=== PATIENT | female | born 1995 | race Caucasian/White ===

== ENCOUNTER 2024-01-10 12:49 | Outpatient (RCR) | payer OTHER, MEDICAID, SELFPAY ==
[2024-01-10 13:01] VITALS: BMI 37.6
== END 2024-03-26 11:10 | disposition home or self-care (01) ==
LOC: ANHDMC 12:49
PROVIDERS: PCP Obstetrics & Gynecology; Visit Provider Obstetrics & Gynecology
DX: O24.419 Gestational diabetes mellitus in pregnancy, unspecified control (principal); Z3A.00 Weeks of gestation of pregnancy not specified; Z71.3 Dietary counseling and surveillance; Z71.89 Other specified counseling
CPT/HCPCS: 97802; G0108

== ENCOUNTER 2024-02-29 11:28 | Outpatient (RCR) | payer OTHER, MEDICAID, SELFPAY ==
[2024-01-19 11:33] VITALS: BP 117/64; PULSE 107
[2024-01-25 11:55] VITALS: BP 120/62; PULSE 79
[2024-02-08 12:10] VITALS: BP 101/65; PULSE 92
[2024-02-15 16:02] VITALS: BP 133/68; PULSE 86
[2024-02-22 11:58] VITALS: BP 126/71; PULSE 76
[2024-02-29 12:01] VITALS: BP 117/82; PULSE 93
== END 2024-04-03 13:35 | disposition home or self-care (01) ==
LOC: ANHOBOP 11:28
PROVIDERS: PCP Family Medicine; Visit Provider Obstetrics & Gynecology
DX: O24.419 Gestational diabetes mellitus in pregnancy, unspecified control (principal); Z3A.32 32 weeks gestation of pregnancy; O16.3 Unspecified maternal hypertension, third trimester; Z3A.33 33 weeks gestation of pregnancy; Z3A.35 35 weeks gestation of pregnancy; Z3A.36 36 weeks gestation of pregnancy; Z3A.37 37 weeks gestation of pregnancy; Z3A.38 38 weeks gestation of pregnancy
CPT/HCPCS: 59025

== ENCOUNTER 2024-03-03 13:07 | Inpatient (IN) | payer OTHER, MEDICAID, SELFPAY ==
[2024-03-03] VITALS (44 sets, daily range): BP systolic 106–148; BP diastolic 49–100; PULSE 64–274; RESP 20; TEMP 36.4–37.6; O2SAT 94–100; BMI 37.9
[2024-03-03] MEDS: LACTATED RINGERS 1,000 ML 125 ML IV CONT (14:00)
[2024-03-03] MEDS: OXYTOCIN 30 UNITS/NS 500 ML 30 UNITS/500 ML BAG IV CONT (14:00)
[2024-03-03] MEDS: AMPICILLIN 2 GM/NS 100 ML 2 GM/100 ML BAG IVPB (14:00)
[2024-03-03] MEDS: NIFEdipine 30 MG TAB.ER.24 PO (14:05)
[2024-03-03 14:07] LABS: Basophils Percent Auto 0.1 % (0.2-1.2); Eosinophils Absolute Auto 0.1 K/mm3 (0-0.3); Eosinophils Percent Auto 0.7 % (0-4.4); Hematocrit 38.1 % (37.0-47.0); Hemoglobin 12.4 g/dL (12.0-15.0); Immature Granulocyte Absolute 0.03 K/mm3 (0.00-0.031); Immature Granulocyte Percent A 0.3 % (0-0.5); Lymphocytes Absolute Auto 1.55 K/mm3 (0.9-3.2); Lymphocytes Percent Auto 17.1 % (18.3-44.2); Mean Corpuscular HGB Conc 32.5 g/dl (32-36); Mean Corpuscular Hemoglobin 26.1 pg (26-34); Mean Platelet Volume 11.9 fl (7.4-10.4); Monocytes Absolute Auto 0.6 K/mm3 (0.1-0.6); Monocytes Percent Auto 6.2 % (2.6-8.5); Neutrophils Absolute Auto 6.8 K/mm3 (1.3-6.7); Neutrophils Percent Auto 75.6 % (45.5-73.1); Platelet Count Result 183 k/mm3 (150-375); Red Blood Count 4.76 M/mm3 (4.2-5.4); Red Cell Distribution Width 13.8 % (11.5-14.5); White Blood Count 9.1 K/mm3 (4.5-10.0)
--- NOTE | 2024-03-03 14:10 | LDADM ---
This patient, Karina Carrillo, was admitted to Labor/Delivery/Recovery 106 on 03/03/24 at 13:07. Plans for labor, pain management and were discussed with patient. Patient/family oriented to hospital policies and general routines including ID bracelet, bed and alarms, visiting hours, pain management, procedures, bathroom and other care routines, personal items, smoking policy, room service/diet and guest tray routines, infant security routines, and visiting hours. Patient/Family are encouraged to report perceived risks to care and to ask questions if they do not understand what they are told or what they should do. See OBIX for further documentation.
[2024-03-03 14:19] LABS: Alanine Aminotransferase 21 U/L (6-35); Albumin Level 3.8 g/dL (3.5-5.1); Alkaline Phosphatase 172 U/L (38-126); Anion Gap 10 mmol/L (4-12); Aspartate Amino Transferase 22 U/L (14-36); Bilirubin,Total 0.4 mg/dL (0.2-1.3); Blood Urea Nitrogen 8 mg/dL (7-17); Calcium 8.5 mg/dL (8.4-10.2); Carbon Dioxide 19 mmol/L (22-30); Chloride 105 mmol/L (98-107); Estimated CRCL calculation 121 ml/min; Estimated Glomerular Filt Rate > 60; Glucose 109 mg/dL (65-110); Potassium 3.8 mmol/L (3.4-5.0); Sodium 134 mmol/L (137-145); Uric Acid 4.5 mg/dL (2.5-7.5)
[2024-03-03 14:59] LABS: HIV 1/2 Ab P24 Ag Result Negative (Negative)
--- NOTE | 2024-03-03 15:48 | WPDANESEPP ---
Anes - Eval Pre Procedure Procedure: Labor epidural Date/Time: 03/03/24 15:48 Surgeon: Nasrin Preop Diagnosis: Pain during labor Pre Op Diagnosis: Spontaneous Labor Patient Data Age: 28 Gender: F Height: 1.55 m Weight: 91 kg Last Vital Signs Temp 37.6 C 03/03/24 15:00 Pulse 187 H 03/03/24 15:45 BP 126/77 03/03/24 15:45 O2 Del Method Room Air 03/03/24 14:09 Allergies Allergy/AdvReac Type Severity Reaction Status Date / Time No Known Allergies Allergy Verified 03/03/24 14:07 Home Medications Medication Instructions Recorded Confirmed Type aspirin 81 mg tablet,delayed 81 mg PO HS 01/25/24 03/03/24 History release cyanocobalamin (vitamin B-12) 3,000 mcg PO HS 01/25/24 03/03/24 History 1,000 mcg tablet (Vitamin B-12) nifedipine 30 mg tablet,extended 30 mg PO HS 01/25/24 03/03/24 History release 24 hr (Procardia XL) vit no.95-ferrous 1 tablet PO HS 01/25/24 03/03/24 History fumarate 28 mg-folic acid 800 mcg tablet () Laboratory Tests 03/03/24 03/03/24 14:01 14:01 WBC 9.1 K/mm3 (4.5-10.0) RBC 4.76 M/mm3 (4.2-5.4) Hgb 12.4 g/dL (12.0-15.0) Hct 38.1 % (37.0-47.0) MCV 80.0 fl (80-100) MCH 26.1 pg (26-34) MCHC 32.5 g/dl (32-36) RDW 13.8 % (11.5-14.5) Plt Count 183 k/mm3 (150-375) MPV 11.9 H fl (7.4-10.4) Immature Gran % (Auto) 0.3 % (0-0.5) Neut % (Auto) 75.6 H % (45.5-73.1) Lymph % (Auto) 17.1 L % (18.3-44.2) [place] % (Auto) 6.2 % (2.6-8.5) Eos % (Auto) 0.7 % (0-4.4) Baso % (Auto) 0.1 L % (0.2-1.2) Lymph # (Auto) 1.55 K/mm3 (0.9-3.2) [place] # (Auto) 0.6 K/mm3 (0.1-0.6) Eos # (Auto) 0.1 K/mm3 (0-0.3) Baso # (Auto) 0.0 K/mm3 (0.0-0.1) Abs Immat Gran (auto) 0.03 K/mm3 (0.00-0.031) Absolute Neuts (auto) 6.8 H K/mm3 (1.3-6.7) Absolute Nucleated RBC 0.000 K/mm3 (0.0-0.012) Nucleated RBC % 0.0 % (0.0-0.2) Sodium 134 L mmol/L (137-145) Potassium 3.8 mmol/L (3.4-5.0) Chloride 105 mmol/L (98-107) Carbon Dioxide 19 L mmol/L (22-30) Anion Gap 10 mmol/L (4-12) BUN 8 mg/dL (7-17) Creatinine 0.60 L mg/dL (0.7-1.0) Estim Creat Clear Calc 121 ml/min Estimated GFR > 60 (59 - ) Glucose 109 mg/dL (65-110) Uric Acid Cancelled 4.5 mg/dL (2.5-7.5) Calcium 8.5 mg/dL (8.4-10.2) Total Bilirubin 0.4 mg/dL (0.2-1.3) AST 22 U/L (14-36) ALT 21 U/L (6-35) Alkaline Phosphatase 172 H U/L (38-126) Total Protein 7.0 g/dL (6.3-8.2) Albumin 3.8 g/dL (3.5-5.1) RPR Pending HIV 1&2 Ab/P24 Ag 4thGn Negative (Negative) Blood Type A Positive Antibody Screen Negative Patient hx anesthesia problems: none Family hx anesthesia problems: none Results Review: All pre-operative results and documents have been reviewed as part of the pre-operative evaluation. [facility] Family History Family History Mother Renal failure Grandparent Diabetes mellitus Father Hypertension Social History Social History Smoking status: Never smoker Substance use: never Do You Feel Safe in your Home?: Yes Lack of Transportation: No Lack of Food: Never True Current Housing: I Have Housing Concerned About Future Housing: No Difficulty Paying Gas/Electric Bills: No Difficulty Paying for Meds: No Currently Unemployed: No Education: High School Diploma/GED Difficulty w/ Childcare or Family Care: No Spiritual care concerns: No Exam Day of Procedure 03/03/24 15:48 Patient weight: obese Heart: regular rate and rhythm Lungs: clear to auscultation Airway:
[2024-03-03] MEDS: LIDOCAINE HCL 1% LOCAL INJ 20 ML VIAL (16:32)
--- NOTE | 2024-03-03 16:36 | WPDOBADMIT ---
Obstetrics - Admit Note Admission Note: record reviewed. Pertinent additions to the history and/or any subsequent changes in the physical findings that are not consistent with the expected course of the were found. Additions to the history and/or subsequent changes in the physical findings follow. the patient arrived to Labor and delivery reporting spontaneous rupture of membranes at 2:00 a.m.. Patient did not arrive to labor and delivery until 1:00 p.m.. Patient was keegan mildly and was 4cm with grossly ruptured membranes. is complicated by gestational hypertension and gestational diabetes. Positive group B strep. Pitocin and ampicillin were started on admission. Expected management.
--- NOTE | 2024-03-03 16:38 | PM.OBPRVD ---
OB - Vaginal Delivery Note Procedure Delivery date: 03/03/24 Events: Gestational Diabetes and Gestational Hypertension Induction method: None Delivery augmentation: Pitocin Delivery monitor: External FHT and External Uterine Route of delivery: ( Precipitous delivery into the bed performed by the RN) Episiotomy description: None Laceration Description: Perineal - 2nd Degree Delivery repair: vicryl (3-0) Specimen: Yes ( placenta ) Quantitative Blood Loss (ml): 200 Anesthesia type: Local Disposition: Floor Complications: No immediate complications Narrative: I was called and 1610. On my arrival at 1624, was on the maternal abdomen nurse was cutting the cord. delivered 1621 by the RN. The patient had asked for pain medication and before giving medication the patient was checked and noted to be complete. Baby Date of : 03/03/24 Weeks of gestation at delivery: 38 (38 4/7) gender: Male presentation: vertex Placenta delivery description: Spontaneous Cord Vessel Description: 3 Vessels and Delayed Cord Clamping score one minute: 8 score five minutes: 9
--- NOTE | 2024-03-03 16:41 | PM.OBDSVD ---
DS: Admitting Diagnosis Discharge Date 03/04/24 Admitting Diagnosis Intrauterine at 38 and 4/7 weeks gestational hypertension gestational diabetes spontaneous rupture of membranes in early labor DS: Discharge Diagnosis Discharge Diagnosis (1) (normal spontaneous vaginal delivery): Code(s): O80 - Encounter for full-term uncomplicated delivery Status: Acute OB - DS: Summary OB Procedures : Ultrasound OB Procedures Intrapartum: Spontaneous Vag Delivery ( by RN) OB Procedures: : None Peripartum Data Delivery Method: Natural Vaginal Laceration Description: Perineal - 2nd Degree Episiotomy description: None complications: none Status at Discharge Functional status at discharge: independent ambulation Overall status at discharge: patient is progressing back to baseline Time Spent with Patient Time attestation: Total time spent providing and/or coordinating discharge services: DS: Data Data Completed and Pending Labs on day of discharge: Labs from last 24 hours 03/03/24 03/03/24 14:01 14:01 WBC 9.1 RBC 4.76 Hgb 12.4 Hct 38.1 MCV 80.0 MCH 26.1 MCHC 32.5 RDW 13.8 Plt Count 183 MPV 11.9 H Immature Gran % (Auto) 0.3 Neut % (Auto) 75.6 H Lymph % (Auto) 17.1 L [place] % (Auto) 6.2 Eos % (Auto) 0.7 Baso % (Auto) 0.1 L Lymph # (Auto) 1.55 [place] # (Auto) 0.6 Eos # (Auto) 0.1 Baso # (Auto) 0.0 Abs Immat Gran (auto) 0.03 Absolute Neuts (auto) 6.8 H Absolute Nucleated RBC 0.000 Nucleated RBC % 0.0 Sodium 134 L Potassium 3.8 Chloride 105 Carbon Dioxide 19 L Anion Gap 10 BUN 8 Creatinine 0.60 L Estim Creat Clear Calc 121 Estimated GFR > 60 Glucose 109 Uric Acid 4.5 Cancelled Calcium 8.5 Total Bilirubin 0.4 AST 22 ALT 21 Alkaline Phosphatase 172 H Total Protein 7.0 Albumin 3.8 RPR Pending HIV 1&2 Ab/P24 Ag 4thGn Negative Blood Type A Positive Antibody Screen Negative Discharge Plan Discharge Attending physician on discharge: Jason Alexandra Discharging Clinician: Christen Oneill Anticipated Discharge Date/Time: 03/04/24 16:43 Patient Disposition: Home, Self-Care Activity: december shower Diet: regular Patient Instructions: Antibiotic Form Stand Alone Forms: General Discharge Information Follow-up/Referrals: Jason Alexandra MD [Physician] - Call for Appointment Discharge Medications: Continued PNV cmb#95-ferrous fumarate-FA [] 28 mg iron- 800 mcg Tablet 1 tablet PO HS cyanocobalamin (vitamin B-12) [Vitamin B-12] 1,000 mcg Tablet 3,000 mcg PO HS Discontinued nifedipine [Procardia XL] 30 mg Tablet Extended Release 24hr 30 mg PO HS aspirin 81 mg Tablet,Delayed Release (Dr/Ec) 81 mg PO HS Date of admission: 03/03/24 13:07 Primary Care Provider: RICARDOREYNALDO Admitting Provider: Jason Alexandra Attending physician on admission: Jason Alexandra Condition: Stable
[2024-03-03] MEDS: OXYTOCIN 30 UNITS/NS 500 ML 30 UNITS/500 ML BAG 125 UNITS IV CONT (17:03)
[2024-03-03] MEDS: WITCH HAZEL 40 PADS 1 PAD TOPICAL (18:58)
[2024-03-03] MEDS: BENZOCAINE 20% AER SPR (*SP) 56 GM CAN 1 SPRAY TOPICAL (18:58)
[2024-03-04] VITALS: BP 104/76; PULSE 82; RESP 18; TEMP 36.8; O2SAT 99
[2024-03-04 05:56] LABS: Hematocrit 32.8 % (37.0-47.0); Hemoglobin 10.8 g/dL (12.0-15.0)
[2024-03-04 07:39] VITALS: BP 119/81; PULSE 79; RESP 18; TEMP 36.5; O2SAT 100
--- NOTE | 2024-03-04 08:22 | PM.OBPNVD ---
OB - PN: Subj Subjective Date/time seen: 03/04/24 08:22 Patient comments: no complaints and pain well controlled baby status: doing well OB - PN: Obj Data Labs 03/04/24 05:39 03/03/24 14:01 Labs: Laboratory Results - last 24 hr 03/03/24 03/03/24 03/04/24 14:01 14:01 05:39 WBC 9.1 RBC 4.76 Hgb 12.4 10.8 L Hct 38.1 32.8 L MCV 80.0 MCH 26.1 MCHC 32.5 RDW 13.8 Plt Count 183 MPV 11.9 H Immature Gran % (Auto) 0.3 Neut % (Auto) 75.6 H Lymph % (Auto) 17.1 L [place] % (Auto) 6.2 Eos % (Auto) 0.7 Baso % (Auto) 0.1 L Lymph # (Auto) 1.55 [place] # (Auto) 0.6 Eos # (Auto) 0.1 Baso # (Auto) 0.0 Abs Immat Gran (auto) 0.03 Absolute Neuts (auto) 6.8 H Absolute Nucleated RBC 0.000 Nucleated RBC % 0.0 Sodium 134 L Potassium 3.8 Chloride 105 Carbon Dioxide 19 L Anion Gap 10 BUN 8 Creatinine 0.60 L Estim Creat Clear Calc 121 Estimated GFR > 60 Glucose 109 Uric Acid Cancelled 4.5 Calcium 8.5 Total Bilirubin 0.4 AST 22 ALT 21 Alkaline Phosphatase 172 H Total Protein 7.0 Albumin 3.8 HIV 1&2 Ab/P24 Ag 4thGn Negative Blood Type A Positive Antibody Screen Negative OB - PN A/P Plan day: 1 Plan: routine care and discharge home Time Spent With Patient Time: Total time spent is greater than 50% in coordination of care (as documented) at patient's floor/unit and/or counseling patient: Exam : Bimanual exam- vagina & uterus: other (Uterus firm, nt @U)
[2024-03-04] MEDS: DOCUSATE SODIUM 100 MG CAPSULE PO ×2 (09:24→16:33)
[2024-03-04] MEDS: MULTIVIT/MIN/PREN/FOL AC/IRON TABLET 1 TAB PO (09:24)
[2024-03-04 12:00] VITALS: BP 136/82
[2024-03-04 21:15] VITALS: BP 116/75; PULSE 89; RESP 16; TEMP 37.1; O2SAT 99
[2024-03-05 00:40] VITALS: BP 105/74; PULSE 81; RESP 16; TEMP 36.9; O2SAT 99
[2024-03-05 07:45] VITALS: BP 115/67; PULSE 84; RESP 16; TEMP 36.9; O2SAT 100
--- NOTE | 2024-03-05 09:05 | PM.OBPNVD ---
OB - PN: Subj Subjective Date/time seen: 03/05/24 09:05 Narrative: Pain OK. Would like to go home. OB - PN: Obj Data Labs 03/04/24 05:39 03/03/24 14:01 OB - PN A/P Plan Comments: A: PPD#2, doing well. P: Home to f/u 6 weeks. Exam Psych: Other: AVSS ABD soft, nontender, fundus firm EXT nontender
--- NOTE | 2024-03-05 09:05 | PM.OBDSVD ---
DS: Admitting Diagnosis Discharge Date 03/05/24 Admitting Diagnosis IUP at term Labor Gestational diabetes Chronic hypertension GBS colonization DS: Discharge Diagnosis Discharge Diagnosis (1) (normal spontaneous vaginal delivery): Code(s): O80 - Encounter for full-term uncomplicated delivery Status: Acute (2) Gestational diabetes mellitus: Code(s): O24.419 - Gestational diabetes mellitus in , unspecified control Status: Acute (3) GBS (group B Streptococcus carrier), +RV culture, currently : Code(s): O99.820 - Streptococcus B carrier state complicating Status: Acute OB - DS: Summary OB Procedures : NST and PIH Mgmt OB Procedures Intrapartum: Spontaneous Vag Delivery OB Procedures: : None Peripartum Data Laceration Description: Perineal - 2nd Degree Episiotomy description: None Time Spent with Patient Time attestation: Total time spent providing and/or coordinating discharge services: DS: Data Data Completed and Pending Pending studies at discharge: Pending at discharge 03/03/24 16:41 Surgical [PTH] Routine Discharge Plan Discharge Attending physician on discharge: Jason Alexandra Discharging Clinician: Jason Alexandra Anticipated Discharge Date/Time: 03/04/24 16:43 Patient Disposition: Home, Self-Care Activity: pelvic rest Diet: regular Discharge Instructions: Call or return if temperature above 100.4? F, increased abdominal pain, increased vaginal bleeding or any new problems. Stand Alone Forms: General Discharge Information Follow-up/Referrals: Jason Alexandra MD [Physician] - 6 Weeks Discharge Medications: New ibuprofen 600 mg tablet 600 mg PO Q6H PRN (Reason: cramps) Qty: 30 0RF Continued PNV cmb#95-ferrous fumarate-FA [] 28 mg iron- 800 mcg Tablet 1 tablet PO HS cyanocobalamin (vitamin B-12) [Vitamin B-12] 1,000 mcg Tablet 3,000 mcg PO HS Discontinued nifedipine [Procardia XL] 30 mg Tablet Extended Release 24hr 30 mg PO HS aspirin 81 mg Tablet,Delayed Release (Dr/Ec) 81 mg PO HS Date of admission: 03/03/24 13:07 Primary Care Provider: RICARDOREYNALDO Admitting Provider: Jason Alexandra Attending physician on admission: Jason Alexandra Condition: Stable
[2024-03-05] MEDS: MULTIVIT/MIN/PREN/FOL AC/IRON TABLET 1 TAB PO (09:08)
[2024-03-05] MEDS: BENZOCAINE 20% AER SPR (*SP) 56 GM CAN 1 SPRAY TOPICAL (09:08)
[2024-03-05] MEDS: DOCUSATE SODIUM 100 MG CAPSULE PO (09:08)
[2024-03-05] MEDS: WITCH HAZEL 40 PADS 1 PAD TOPICAL (09:08)
[2024-03-05 11:25] LABS: Rapid Plasma Reagin Non-Reactive (NonReactive)
[2024-03-06 11:07] VITALS: BP 133/79; PULSE 95; RESP 18; TEMP 36.9; O2SAT 100
== END 2024-03-05 10:08 | disposition home or self-care (01) | DRG 807 ==
LOC: ANHLDR 16:43 → ANHOB2 03-05 09:21 → ANHLDR 03-06 09:54 → ANHOB2 03-06 09:54
PROVIDERS: Admitting Provider Obstetrics & Gynecology Gynecology; PCP Family Medicine; Visit Provider Obstetrics & Gynecology Gynecology
DX: O42.02 Full-term premature rupture of membranes, onset of labor within 24 hours of rupture (principal); Z37.0 Single live birth; Z3A.38 38 weeks gestation of pregnancy; O13.4 Gestational [pregnancy-induced] hypertension without significant proteinuria, complicating childbirth; O99.824 Streptococcus B carrier state complicating childbirth; O62.3 Precipitate labor; O24.429 Gestational diabetes mellitus in childbirth, unspecified control; O69.81X0 Labor and delivery complicated by cord around neck, without compression, not applicable or unspecified; O70.1 Second degree perineal laceration during delivery
CPT/HCPCS: 36415; 80053; 84112; 84550; 85014; 85018; 85025; 86592; 86703; 86850; 86900; 86901; 88307; A9270; G0432; J0290; J2590; J2795; J7120